=== PATIENT | male | born 1990 | race Caucasian/White ===

== ENCOUNTER 2016-09-03 07:24 | Emergency (ER) | payer OTHER ==
[~2016-09-03] VITALS: Ht 165.1 cm; Wt 56.8 kg
[2016-09-03 07:26] VITALS: BP 117/74; PULSE 94; RESP 18; O2SAT 95
--- NOTE | 2016-09-03 07:33 | ED.REPORT ---
HPI-Abd Pain M Under 40 Date of Service Sep 03, 2016 ED Provider: Patient is a 26 year old male who reports to the ED complaining of vomiting all night. Pt c/o associated nausea, abdominal pain and back pain. Pt denies chills and cough. He took Zofran at home but vomited the medicine. Both his and toddler have experienced similar symptoms over the past several days. Nursing Notes Stated Complaint: NAUSEA Chief Complaint: Male Abdominal Pain Nursing Notes Reviewed: Yes Allergies: Coded Allergies: No Known Allergies (Unverified Allergy, Unknown, 09/03/16) Scheduled PRN Promethazine (Promethazine) 25 Mg Tablet 25 MG PO Q6H PRN PRN For Nausea/ Vomiting General Time Seen by MD: 07:33 Chief Complaint Vomiting moderate Hx Obtained From: Patient Arrived By: Walk-in Sudden in Onset?: Yes Onset Occurred: 5 - 8 hours ago Symptom Duration: Since onset Progression since Onset: Intermittent Location: : Abdomen lower Radiation: : Does not radiate Severity: Current: Mild Severity: Maximum: Mild Associated with: Reports: Back pain Similar Sx Previous: No Past Medical History Past Medical History denies Past Surgical History denies Ambulatory Status Independent Review of Systems Constitutional: Denies: Chills Respiratory: Denies: Non-productive cough GI: Reports: Abdominal pain, Vomiting Musculoskeletal: Reports: Back pain Complete sys rev & neg: except as marked. Physical Exam Physical Exam Notes: febrile Initial Vital Signs Vital Signs (First) Date Time Temp Pulse Resp B/P Pulse Ox O2 Delivery O2 Flow Rate FiO2 09/03/16 07:26 38.0 94 18 117/74 95 Room Air Initial VS: Reviewed Head / Eyes: Atraumatic, Normocephalic, PERRL ENT: Mucous membranes moist, Conjunctiva normal, No scleral icterus Skin: Warm, Dry, No cyanosis Neurologic: Alert, Oriented, Nonfocal Psychiatric: Mood/affect normal, Behavior normal, Normal thought content General/Constitutional: Awake, Alert, No acute distress, Well appearing Respiratory / Chest: Atraumatic, Breath sounds NL, Breath sounds = bilat, No respiratory distress, No rales, No rhonchi, No wheezing, No retractions Cardiovascular: Heart rate NL, Regular rhythm, Heart sounds NL, No gallop, No murmurs, No rubs Abdomen: Atraumatic, Soft Back: Atraumatic, Inspection NL, Full range of motion, Painless range of motion , Non-tender Re-Eval/Medical Decision Med Decision/Clinical Course 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 His abdominal exam is benign. He is feeling better after IM Toradol and promethazine. He will be discharged with promethazine and follow-up as needed if worse. Re-Evaluation/Progress : Time of Eval: 08:26 Patient Status: Condition improved, Mild relief Re-Evaluation/Progress Note: Pt rechecked. Nausea improved with medication. Plan for treatment and discharge discussed. Pt understands and agrees with plan. F/U and RTER warnings given. All questions addressed. Counseled Regarding: Diagnosis, Lab results, Need for follow-up, When/why to return to ED Patient Discharge & Departure Primary Impression: Vomiting Vomiting type: unspecified Vomiting Intractability: unspecified Nausea presence: with nausea Qualified Code: R11.2 - Nausea with vomiting, unspecified Disposition: Home Discharge Condition All VS Reviewed: Yes Condition: Stable Additional Instructions: Thank you for seeking care at the emergency room. Use promethazine as needed for vomiting. Stay hydrated. Use Tylenol and ibuprofen as needed for fever. Return to the ER as needed for intractable vomiting or other concerns. Referrals: NOPCP (PCP) Scribe Attestation Portion of this note were transcribed by Sona Lanier. I, Dr. Mccallum, personally performed the history, physical exam, and medical decision-making: I reviewed and confirmed the accuracy for the information in the transcribed note. Signed by: bouchra Enriquez, 09/03/16 0840 Jas Mccallum DO Sep 03, 2016 07:33 SONA LANIER Sep 03, 2016 07:41
[2016-09-03] MEDS ORDERED: Ondansetron 2 mg/mL 2 mL Inj IVPUSH PRN (07:35)
[2016-09-03] MEDS ORDERED: Ketorolac 15 mg/mL Inj IVPUSH ONE (07:35)
[2016-09-03] MEDS ORDERED: Promethazine 25 mg/mL Inj IM ONE (07:45)
[2016-09-03] MEDS ORDERED: PROM25TA14 PO (08:31)
[2016-09-03 08:35] VITALS: BP 107/65; PULSE 88; RESP 16; O2SAT 97
== END 2016-09-03 08:37 | disposition home or self-care (01) ==
LOC: SED 07:24
DX: R11.2 Nausea with vomiting, unspecified (principal)

== ENCOUNTER 2016-11-03 10:52 | Emergency (ER) | payer OTHER ==
[~2016-11-03] VITALS: Ht 162.6 cm; Wt 56.8 kg
[~2016-11-03 10:52] MED LIST: PROM25TA14 PO
[2016-11-03 10:54] VITALS: BP 115/72; PULSE 102; RESP 18; O2SAT 97
--- NOTE | 2016-11-03 11:17 | ED.REPORT ---
HPI-General Illness Date of Service Nov 03, 2016 ED Provider: Andrés Blackwell MD 26 year old male presents to the ER complaining of nausea and vomiting onset this morning around 07:00. He states that he was drinking heavily last night, and smoked some marijuana this morning. Patient admits to similar symptoms from drinking alcohol in the past, though never this severe. Associated symptoms of muscular pain in his back and abdomen, though he speculates that these symptoms are secondary to vomiting. He denies fever, chills, and other recent illness. Nursing Notes Stated Complaint: VOMITING Chief Complaint: Male Abdominal Pain Nursing Notes Reviewed: Yes Allergies: Coded Allergies: No Known Allergies (Unverified Allergy, Unknown, 09/03/16) Scheduled PRN Ondansetron ODT (Zofran ODT) 4 Mg Tablet 4 MG PO Q4H PRN PRN For Nausea Promethazine (Promethazine) 25 Mg Tablet 25 MG PO Q6H PRN PRN For Nausea/ Vomiting General Time Seen by MD: 11:16 Chief Complaint Vomiting Hx Obtained From: Patient Arrived By: Walk-in Sudden in Onset?: No Onset Occurred: 1 - 4 hours ago Symptom Duration: Since onset Location: : Abdomen Quality: Painful Severity: Current: Mild Severity: Maximum: Mild Associated with: Reports: Abdominal pain Pertinent Negative: Pt denies other symptoms Similar Sx Previous: Yes Past Medical History Past Medical History denies Past Surgical History denies Ambulatory Status Independent Review of Systems Full Review of Systems Constitutional: Denies: Chills, Fever Respiratory: Denies: Non-productive cough, Shortness of breath GI: Reports: Abdominal pain, Nausea, Vomiting, Denies: Diarrhea Male: Denies Dysuria, Denies Flank pain Musculoskeletal: Reports: Back pain Complete sys rev & neg: except as marked. Physical Exam Vital Signs Vital Signs Date Time Temp Pulse Resp B/P Pulse Ox O2 Delivery O2 Flow Rate FiO2 11/03/16 12:37 83 16 108/55 97 11/03/16 10:54 35.9 102 18 115/72 97 Initial VS: Reviewed Head / Eyes: Atraumatic, Normocephalic Neck: Supple, Non-tender, Full range of motion Extremities: Vascular intact, Neuro intact, No swelling, No tenderness Skin: Warm, Dry, No cyanosis Neurologic: Alert, Oriented, Nonfocal General/Constitutional: Awake, Alert, Well developed Respiratory / Chest: Breath sounds NL, No respiratory distress, No rales, No rhonchi, No wheezing Cardiovascular: Heart rate NL, Regular rhythm, Heart sounds NL, Cap refill not delayed, Peripheral circulation NL Abdomen: Soft, Non-tender, No guarding, No rebound, No distention Actively vomiting in the room. Interpretation & Diagnostics Lab Results Interpretation Result Diagram: 11/03/16 1115 11/03/16 1115 Test 11/03/16 11:15 White Blood Count 22.4th/mm3 (3.8-10.1) Red Blood Count 5.61mil/mm3 (4.40-5.80) Hemoglobin 15.1g/dL (13.8-17.2) Hematocrit 44.4% (41.0-50.0) Mean Corpuscular Volume 79.1fL (81-100) Mean Corpuscular Hemoglobin 26.9pg (27.0-35.0) Mean Corpuscular Hemoglobin Concent 34.0% (32.0-37.0) Red Cell Distribution Width 12.7% (12.3-15.4) Platelet Count 307bil/L (150-400) Neutrophils (%) (Auto) 83.3% (40-74) Lymphocytes (%) (Auto) 10.6% (14-46) Monocytes (%) (Auto) 5.4% (4-12) Eosinophils (%) (Auto) 0% (0-5) Basophils (%) (Auto) 0.4% (0-3) Sodium Level 142mEq/L (134-144) Potassium Level 4.0mEq/L (3.5-5.2) Chloride Level 100mEq/L (97-108) Carbon Dioxide Level 21mmol/L (18-29) Blood Urea Nitrogen 17mg/dL (6-20) Creatinine 0.77mg/dL (0.76-1.27) Estimat Glomerular Filtration Rate 131mL/min (>59) Glucose Level 105mg/dL (60-99) Calcium Level 9.4mg/dL (8.5-10.1) Magnesium Level 1.8mg/dL (1.6-2.6) Total Bilirubin 0.4mg/dL (0.0-1.2) Aspartate Amino Transf (AST/SGOT) 39U/L (0-50) Alanine Aminotransferase (ALT/SGPT) 34U/L (0-44) Alkaline Phosphatase 81U/L (25-150) Total Protein 7.5g/dL (6.4-8.4) Albumin 5.0g/dL (3.4-5.0) Lipase 15U/L (13-60) Re-Eval/Medical Decision Time of Eval: 12:23 Re-Evaluation/Progress Note: Patient is improved, reports that he is significantly less nauseated. Discussed lab results and plan to discharge. Patient is amenable to the plan. Return precautions given. All other questions addressed. Counseled Regarding: Diagnosis, Lab results, Need for follow-up, When/why to return to ED Discharge & Departure Primary Impression: Vomiting Vomiting type: unspecified Vomiting Intractability: non-intractable Nausea presence: with nausea Qualified Code: R11.2 - Nausea with vomiting, unspecified Disposition: Home Discharge Condition All VS Reviewed: Yes Condition: Stable Patient Instructions: Acute Nausea and Vomiting (ED), Gastritis (ED) Additional Instructions: Of course I recommended that you not drink so much at any one time. I recommend small amounts of clear liquid beverages frequently throughout the day today. Use ondansetron as needed for nausea. Follow up in a day or 2 if not back to normal. Referrals: NOPCP (PCP) Charles Attestation Portions of this note were transcribed by Justine Haywood. I, Dr. Blackwell, personally performed the history, physical exam and medical decision-making; I reviewed and confirmed the accuracy of the information in the transcribed note. Signed by: Charles Gentile, 11/03/2016 and 12:25 Andrés Blackwell MD Nov 03, 2016 11:17 JUSTINE HAYWOOD Nov 03, 2016 11:24
[2016-11-03] MEDS ORDERED: 0.9% Sodium Chloride 1,000 ML IV ONE (11:18)
[2016-11-03] MEDS ORDERED: MetoCLOpramide 5 mg/mL 2 mL Inj IVPUSH ONE (11:20)
[2016-11-03] MEDS ORDERED: Pantoprazole 4 mg/mL 10 mL Inj IVPUSH ONE (11:20)
[2016-11-03] MEDS ORDERED: Ondansetron 2 mg/mL 2 mL Inj IVPUSH PRN (11:20)
[2016-11-03 11:26] LABS: BASOPHILS % (AUTO) 0.4 % (0-3); EOSINOPHILS % (AUTO) 0 % (0-5); MONOCYTES % (AUTO) 5.4 % (4-12); Mean Corpuscular Hemoglobin 26.9 pg (27.0-35.0); Mean Corpuscular Volume 79.1 fL (81-100); NEUTROPHILS % (AUTO) 83.3 % (40-74); Platelet Count 307 bil/L (150-400)
[2016-11-03 12:13] LABS: Magnesium 1.8 mg/dL (1.6-2.6)
[2016-11-03] MEDS ORDERED: ONDA4TAB9 PO (12:25)
[2016-11-03 12:37] VITALS: BP 108/55; PULSE 83; RESP 16; O2SAT 97
== END 2016-11-03 12:38 | disposition home or self-care (01) ==
LOC: SED 10:52
DX: R11.2 Nausea with vomiting, unspecified (principal)
CPT/HCPCS: 36415; 80053; 83690; 83735; 85025; 96361; 96374; 96375; 99284; J2405; J2765; J7030

== ENCOUNTER 2017-01-25 06:22 | Emergency (ER) | payer OTHER ==
[~2017-01-25] VITALS: Ht 160 cm; Wt 59.1 kg
[~2017-01-25 06:22] MED LIST changes: +ONDA4TAB9 PO
[2017-01-25 06:25] VITALS: BP 108/61; PULSE 96; RESP 17; O2SAT 100
[2017-01-25] MEDS ORDERED: Ondansetron 2 mg/mL 2 mL Inj ONE ×2 (07:43→09:11)
[2017-01-25 08:07] LABS: BASOPHILS % (AUTO) 0.2 % (0-3); EOSINOPHILS % (AUTO) 0 % (0-5); MONOCYTES % (AUTO) 3.5 % (4-12); Mean Corpuscular Hemoglobin 27.4 pg (27.0-35.0); Mean Corpuscular Volume 80.8 fL (81-100); NEUTROPHILS % (AUTO) 91.1 % (40-74); Platelet Count 245 bil/L (150-400)
--- NOTE | 2017-01-25 08:39 | ED.REPORT ---
HPI-General Illness Date of Service Jan 25, 2017 ED Provider: Art Coronado MD The pt is a 26 y/o male w/ a distant hx of an infectious colitis years ago presenting to the ED complaining of vomiting onset 0230 this morning. The pt has vomited 20 times since then and is also experiencing a headache, generalized weakness, hot and cold chills, nausea, and lower back pain. He began feeling sick 6 days ago but suspected it being due to him working in a [employer]. His coworker was also sick 5 days ago but only missed one day of work. The pt is also experiencing trace L ear pain when yawning or when he gets water in it, but suspects it is due to putting an earplug in too far. Denies diarrhea. Nursing Notes Stated Complaint: SHAKING,WEAK,VOMITING,HOT AND COLD CHILLS Chief Complaint: Male Abdominal Pain Nursing Notes Reviewed: Yes ([employer], Jianshu not reconciled) Allergies: Coded Allergies: No Known Allergies (Unverified Allergy, Unknown, 09/03/16) Scheduled Ondansetron ODT (Ondansetron ODT) 8 Mg Tab.rapdis 8 MG PO Q4H Scheduled PRN Ondansetron ODT (Zofran ODT) 4 Mg Tablet 4 MG PO Q4H PRN PRN For Nausea Promethazine (Promethazine) 25 Mg Tablet 25 MG PO Q6H PRN PRN For Nausea/ Vomiting General Time Seen by MD: 08:36 Chief Complaint Vomiting Hx Obtained From: Patient Arrived By: Walk-in Sudden in Onset?: Yes Onset Occurred: 5 - 8 hours ago Symptom Duration: Since onset Recent Healthcare: No recent doctor visit, No recent hospitalization Similar Sx Previous: No Past Medical History Past Medical History Colitis Past Surgical History Ankle surgery Smoking History Unknown if Ever Smoker Social History Other Social History: Good social support Ambulatory Status Independent Review of Systems Sensations of feeling hot and cold Full Review of Systems Constitutional: Reports: Weakness - generalized Ears / Nose / Throat: Reports: Earache left GI: Reports: Nausea, Vomiting Musculoskeletal: Reports: Back pain (Lower ) Complete sys rev & neg: except as marked. Physical Exam Vital Signs Vital Signs Date Time Temp Pulse Resp B/P Pulse Ox O2 Delivery O2 Flow Rate FiO2 01/25/17 12:07 36.6 74 18 95/48 95 Room Air 01/25/17 09:21 83 16 104/42 96 Room Air 01/25/17 06:25 36.7 96 17 108/61 100 Room Air Initial VS: Reviewed, Vital signs normal Head / Eyes: Atraumatic, Normocephalic, PERRL Neck: Supple, Non-tender, Full range of motion Respiratory: Breath sounds normal, Clear to auscultation, No respiratory distress Cardiovascular: Regular rate & rhythm, Heart sounds normal, Intact distal pulses Abdomen / GI: Soft, Non-tender Extremities: Vascular intact, Neuro intact, No swelling, No tenderness Skin: Warm, Dry, No cyanosis Neurologic: Alert, Oriented, Nonfocal Psychiatric: Mood/affect normal, Behavior normal, Normal thought content General/Constitutional: Awake, Alert, Not toxic appearing Distress / Hydration: Positive: Dehydration moderate Interpretation & Diagnostics Lab Results Interpretation Result Diagram: 01/25/17 0750 01/25/17 0750 Test 01/25/17 07:50 White Blood Count 11.8th/mm3 (3.8-10.1) Red Blood Count 5.15mil/mm3 (4.40-5.80) Hemoglobin 14.1g/dL (13.8-17.2) Hematocrit 41.6% (41.0-50.0) Mean Corpuscular Volume 80.8fL (81-100) Mean Corpuscular Hemoglobin 27.4pg (27.0-35.0) Mean Corpuscular Hemoglobin Concent 33.9% (32.0-37.0) Red Cell Distribution Width 12.8% (12.3-15.4) Platelet Count 245bil/L (150-400) Neutrophils (%) (Auto) 91.1% (40-74) Lymphocytes (%) (Auto) 5.1% (14-46) Monocytes (%) (Auto) 3.5% (4-12) Eosinophils (%) (Auto) 0% (0-5) Basophils (%) (Auto) 0.2% (0-3) Sodium Level 141mEq/L (134-144) Potassium Level 3.7mEq/L (3.5-5.2) Chloride Level 100mEq/L (97-108) Carbon Dioxide Level 22mmol/L (18-29) Blood Urea Nitrogen 17mg/dL (6-20) Creatinine 0.72mg/dL (0.76-1.27) Estimat Glomerular Filtration Rate 141mL/min (>59) Glucose Level 82mg/dL (60-99) Calcium Level 9.4mg/dL (8.5-10.1) Magnesium Level 1.8mg/dL (1.6-2.6) Total Bilirubin 0.8mg/dL (0.0-1.2) Aspartate Amino Transf (AST/SGOT) 27U/L (0-50) Alanine Aminotransferase (ALT/SGPT) 18U/L (0-44) Alkaline Phosphatase 99U/L (25-150) Total Protein 7.7g/dL (6.4-8.4) Albumin 4.5g/dL (3.4-5.0) Lipase 15U/L (13-60) Hold Christiansen Top Tube Received (Received) Lab Results Interpretation: CBC mild leukocytosis CMP normal Re-Eval/Medical Decision Med Decision/Clinical Course This is a healthy 26-year-old male presents complaining of several days of not feeling well, with aches, fatigue-and a develop significant nausea vomiting last night. He has not had a definite fever, and reports no diarrhea. He had a coworker that was ill with some sort of GI illness earlier this week, that was transient. He has had no travel history, no additional complaints. On exam he appears well. He does not appear toxic or ill. Nurse initiated IV therapy and antiemetics and feels much better. His abdomen is soft nontender without clinical signs of peritonitis. He has a distant history of an infectious colitis treated with a course of Anaprox with follow-up negative colonoscopy per his report-no evidence of ongoing GI inflammatory process. He has no recent antibiotic exposures. Abscess revealed a mild leukocytosis, but were otherwise normal. Again the patient has no clinical signs of peritonitis or findings necessitate radio imaging. He is treated with IV fluids and is much better. He passed an oral challenge and did well. He is therefore being discharged home with continue supportive measures. A work note was provided for today, routine precautions, return precautions reviewed. Patient's discharge in improved condition. Source of Hx: Old records Time of Eval: 11:51 Re-Evaluation/Progress Note: Pt rechecked. Informed pt of plan for treatment. Pt understands and agrees with plan for treatment. F/U instructions and RTER warnings given. All questions addressed. Differential Diagnosis: Negative: Acute coronary syndrome, Diabetes mellitus, G -tube repair/replacement, Medical clearance, Neutropenia, Upper resp infection Counseled Regarding: Diagnosis, Need for follow-up, When/why to return to ED Discharge & Departure Primary Impression: Vomiting Vomiting type: unspecified Vomiting Intractability: non-intractable Nausea presence: with nausea Qualified Code: R11.2 - Nausea with vomiting, unspecified Additional Impression: Dehydration Disposition: Home Discharge Condition All VS Reviewed: Yes Condition: Stable Additional Instructions: 1. Your symptoms and exam suggest a probable viral infection. 2. Rest. 3. Drink small, frequent sips of fluids. Slowly advance diet as tolerated. 4. Take ondansetron 8mg (let dissolve under the tongue) up to every 4 hours as needed for nausea. 5. The symptoms are expected to be improving over the next 1-2 days. 6. If symptoms are not improving, or if he developed new or worsening symptoms- return to the emergency department. 7. If you need a primary care physician, follow-up with [facility]. Referrals: NOPCP (PCP) [facility] [place] Attestation Portions of this note were transcribed by Shawn Cooper. I, Dr. Coronado personally performed the history, physical exam and medical decision-making; I reviewed and confirmed the accuracy of the information in the transcribed note. Signed by : Charles Graves, 01/25/17 and 1137. copies to: [facility] Art Coronado MD Jan 25, 2017 08:39 Shawn Cooper Jan 25, 2017 11:37
[2017-01-25 08:43] LABS: Magnesium 1.8 mg/dL (1.6-2.6)
[2017-01-25] MEDS ORDERED: 0.9% Sodium Chloride 1,000 ML IV ONE (09:15)
[2017-01-25] MEDS ORDERED: Ondansetron 2 mg/mL 2 mL Inj IVPUSH ONE (09:15)
[2017-01-25 09:21] VITALS: BP 104/42; PULSE 83; RESP 16; O2SAT 96
[2017-01-25] MEDS ORDERED: ONDA8TAB10 PO (11:15)
[2017-01-25 12:07] VITALS: BP 95/48; PULSE 74; RESP 18; O2SAT 95
[2017-02-05] MEDS ORDERED: 0.9% Sodium Chloride 1,000 ML IV ONE (10:15)
== END 2017-01-25 12:08 | disposition home or self-care (01) ==
LOC: SED 06:22
DX: E86.0 Dehydration (principal); M54.5 Low back pain; H92.02 Otalgia, left ear
CPT/HCPCS: 36415; 80053; 82948; 83690; 83735; 85025; 96361; 96374; 96376; 99284; J2405; J7030